=== PATIENT | female | born 1985 | race African-American/Black ===

== ENCOUNTER 2018-10-07 00:11 | Emergency (ER) | payer SELFPAY ==
[~2018-10-07] VITALS: Ht 154.9 cm; Wt 99.8 kg
[2018-10-07 00:11] VITALS: BP 171/85
[2018-10-07] MEDS ORDERED: CEPH-264 PO (00:17)
[2018-10-07] MEDS ORDERED: TETRACAINE 0.5% OPHTH SOLUTION 4ML BOTTLE. OD ONE (00:45)
[2018-10-07] MEDS ORDERED: PROPARACAINE/FLUORESCEIN 0.5 ML OPHTH DROPS. OD ONE (01:00)
--- NOTE | 2018-10-07 04:01 | PHYS DOC ---
Past Medical History Past Medical History: No Pertinent History Past Surgical History: , Tubal ligation, Other Additional Past Surgical Histo: BREAST REDUCTION Alcohol Use: Occasionally Drug Use: None Adult General Chief Complaint Chief Complaint: INSECT BITE HPI HPI Patient is a 33 year old female who presents with arthropod bite to the right leg. The patient [place] this evening when she felt some sort staying on her right leg. When she looked down she saw in insect or possibly a spider falling off of her. Since the incident happened, the patient had onset of erythema and pain and some swelling at the site. She has not had a fever or chills. She denies any additional complaints today. Review of Systems Review of Systems Constitutional: Denies fever HENT: Denies Respiratory: Denies GI: Denies abdominal pain : Denies dysuria Musculoskeletal: Denies back pain Integument: Denies rash or skin lesions All other systems were reviewed and found to be within normal limits, except as documented in this note. Current Medications Current Medications Current Medications Medications (Trade) Dose Ordered Sig/Marilu Start Time Stop Time Status Last Admin Dose Admin Proparacaine HCl/ Fluorescein Sodium (Flucaine Eye Drops) 1 drop 1X ONCE 10/07/18 01:00 10/07/18 01:01 DC Tetracaine HCl (Tetracaine) 1 drop 1X ONCE 10/07/18 00:45 10/07/18 00:49 DC Allergies Allergies Allergies Coded Allergies Type Severity Reaction Last Updated Verified No Known Drug Allergies 10/07/18 No Physical Exam Physical Exam Constitutional: Well developed, well nourished, no acute distress, non-toxic appearance HENT: Normocephalic, atraumatic, bilateral external ears normal, oropharynx moist Cardiovascular:Heart rate regular rhythm Lungs & Thorax: Bilateral breath sounds clear to auscultation Skin: Warm, dry, no erythema, no rash Extremities: area of erythema, approximately 4-5 cm diameter with central pustule over the lateral aspect of the mid right leg Neurologic: Alert and oriented X 3 Psychologic: Affect normal Current Patient Data Vital Signs Vital Signs Date Time Temp Pulse Resp B/P (MAP) Pulse Ox O2 Delivery O2 Flow Rate FiO2 10/07/18 00:11 98.2 77 16 171/85 (113) 100 Room Air 98.2 EKG EKG [] Radiology/Procedures Radiology/Procedures [] Course & Med Decision Making Course & Med Decision Making Pertinent Labs and Imaging studies reviewed. (See chart for details) Patient was evaluated in the emergency department for an arthropod bite. She had developing cellulitis at the site of the wound. She was uncertain when her last tetanus shot was but she refused to receive one this evening. She was discharged home with a prescription for Keflex and advised to come back to the ER for any new or worsening symptoms. Dragon Disclaimer Dragon Disclaimer This electronic medical record was generated, in whole or in part, using a voice recognition dictation system. Departure Departure Impression: Primary Impression: Cellulitis Additional Impression: Arthropod bite Disposition: HOME, SELF-CARE Condition: GOOD Referrals: NO PCP (PCP) Patient Instructions: Cellulitis, Insect Bite, [id number] Scripts Cephalexin (KEFLEX) 500 Mg Capsule 500 MG PO QID for 10 Days, #40 CAP Prov: CARMEN LAWRENCE DO 10/07/18 Problem Qualifiers CARMEN LAWRENCE DO Oct 07, 2018 04:01
== END 2018-10-07 00:32 | disposition home or self-care (01) ==
LOC: ER 00:11
DX: S80.861A Insect bite (nonvenomous), right lower leg, initial encounter (principal); L03.115 Cellulitis of right lower limb; Z98.890 Other specified postprocedural states; Z98.51 Tubal ligation status; W57.XXXA Bitten or stung by nonvenomous insect and other nonvenomous arthropods, initial encounter; Y93.89 Activity, other specified; Y92.89 Other specified places as the place of occurrence of the external cause; Y99.8 Other external cause status
CPT/HCPCS: 99283

== ENCOUNTER 2019-10-28 13:02 | Emergency (ER) | payer SELFPAY ==
[~2019-10-28] VITALS: Ht 154.9 cm; Wt 100.7 kg
[~2019-10-28 13:02] MED LIST: CEPH-264 PO
[2019-10-28 13:23] VITALS: BP 154/71
--- NOTE | 2019-10-28 13:50 | PHYS DOC ---
Past Medical History Past Medical History: No Pertinent History Past Surgical History: , Tubal ligation, Other Additional Past Surgical Histo: BREAST REDUCTION Alcohol Use: Occasionally Drug Use: None Adult General Chief Complaint Chief Complaint: COUGH HPI HPI Patient is a 34 year old female who presents with cough this been ongoing for 2 days. She states his been having a fever, runny nose, congestion, loss of appetite that has been ongoing over 4 days. Review of Systems Review of Systems Constitutional: Reports fever or chills [] Eyes: Denies change in visual acuity, redness, or eye pain [] HENT: Reports nasal congestion, runny nose, and sore throat. Respiratory: Reports cough. Cardiovascular: No additional information not addressed in HPI [] GI: Denies abdominal pain, nausea, vomiting, bloody stools or diarrhea [] : Denies dysuria or hematuria [] Musculoskeletal: Denies back pain or joint pain [] Integument: Denies rash or skin lesions [] Neurologic: Denies headache, focal weakness or sensory changes [] Endocrine: Denies polyuria or polydipsia [] Complete systems were reviewed and found to be within normal limits, except as documented in this note. Allergies Allergies Allergies Coded Allergies Type Severity Reaction Last Updated Verified No Known Drug Allergies 10/07/18 No Physical Exam Physical Exam Constitutional: Well developed, well nourished, no acute distress, non-toxic appearance. [] HENT: Normocephalic, atraumatic, bilateral external ears normal, bilateral tympanic membranes are pearly maza, oropharynx moist, no oral exudates, nose turbinates inflamed. Eyes: PERRLA, EOMI, conjunctiva normal, no discharge. [] Neck: Normal range of motion, no tenderness, supple, no stridor. [] Cardiovascular:Heart rate regular rhythm, no murmur [] Lungs & Thorax: Bilateral breath sounds clear to auscultation [] Skin: Warm, dry, no erythema, no rash. [] Neurologic: Alert and oriented X 3, normal motor function, normal sensory function, no focal deficits noted. [] Psychologic: Affect normal, judgement normal, mood normal. [] Current Patient Data Vital Signs Vital Signs Date Time Temp Pulse Resp B/P (MAP) Pulse Ox O2 Delivery O2 Flow Rate FiO2 10/28/19 13:23 101.2 100 18 154/71 (98) 98 Room Air 101.2 EKG EKG [] Radiology/Procedures Radiology/Procedures [] Course & Med Decision Making Course & Med Decision Making Pertinent Labs and Imaging studies reviewed. (See chart for details) The patient appears to have influenza. Discussed with patient symptomatic care that includes Fluids, Zyrtec, OTC Cough Medicine. Told her to take per OTC instructions. Also discussed fever control with ibuprofen and Tylenol. A medical screening exam was performed on this patient and the patient does not appear to be having a medical emergency. Her symptoms are not of sufficient severity and within reasonable medical probability it is unlikely the absence of immediate medical attention would result in placing the health of the individual (or, with respect to a woman, the health of the woman or her unborn child) in serious jeopardy, serious impairment to bodily functions, or serious dysfunction of any bodily organ or part. If , the patient is not in labor Dragon Disclaimer Dragon Disclaimer This electronic medical record was generated, in whole or in part, using a voice recognition dictation system. Departure Departure Impression: Primary Impression: Encounter for medical screening examination Additional Impression: Viral syndrome Disposition: 01 HOME, SELF-CARE Condition: STABLE Referrals: Wendi SUMMERS MD (PCP) Patient Instructions: Medical Screening Exam, Viral Syndrome Additional Instructions: Thank you for visiting [facility]. We appreciate you trusting us with your care. If any additional problems come up don't hesitate to return to visit us. Please follow up with your primary care provider so they can plan additional care if needed and know about the problem that you had. If symptoms worsen come back to the Emergency Department. Any concerning symptoms that start such as chest pain, shortness of air, weakness or numbness on one side of the body, running high fevers or any other concerning symptoms return to the ER. Problem Qualifiers JOSE CALLAWAY APRN Oct 28, 2019 13:50
== END 2019-10-28 14:05 | disposition home or self-care (01) ==
LOC: ER 13:02
DX: B34.9 Viral infection, unspecified (principal); R63.0 Anorexia; R50.9 Fever, unspecified; Z98.51 Tubal ligation status; Z98.890 Other specified postprocedural states
CPT/HCPCS: 99281

== ENCOUNTER → 2020-09-27 | Outpatient (CLI) | payer BC ==
--- NOTE | 2020-09-28 17:34 | KCIC ---
PROCEDURE: KNEE LEFT 3V STUDY DATE: 09/27/2020 CLINICAL INDICATION / HISTORY: Reason: Acute pain of the left knee . TECHNIQUE: AP, lateral, and oblique views of the left knee. COMPARISON: None FINDINGS: The osseous structures are intact. The articular surfaces are smooth. The joint space is maintained. No intra-articular loose bodies. The alignment is within normal limits. The soft tissues are unremarkable. No obvious joint effusion. No radio-opaque foreign bodies are identified. IMPRESSION: No fracture or dislocation is identified. Electronically signed by: Benito Doty MD (09/28/2020 5:31 PM) [id number]
== END ==
LOC: KCIC 13:36
PROVIDERS: ATTEND Family Medicine
DX: M25.562 Pain in left knee (principal)
CPT/HCPCS: 73562